=== PATIENT | female | born 1935 | race Caucasian/White ===

== ENCOUNTER 2016-12-11 16:11 | Inpatient (IN) | payer MEDICARE, OTHER ==
[~2016-12-11] VITALS: Ht 167.6 cm; Wt 51.3 kg
[~2016-12-11 16:11] MED LIST: Testosterone PO; [UNRECOGNIZED DRUG - CODE] PO; nature-throid; progesterone
[2016-12-11 16:38] VITALS: BP 138/70; PULSE 85; RESP 18; O2SAT 96
[2016-12-11 17:55] LABS: APPEARANCE,URINE TURBID (CLEAR,HAZY); COLOR,URINE YELLOW (YELLOW); PH,URINE 5.5 (5.0-8.0)
[2016-12-11 17:56] LABS: OCCULT BLOOD,URINE MODERATE (NEGATIVE)
[2016-12-11 18:00] VITALS: BP 118/77; PULSE 84; RESP 18; O2SAT 97
--- NOTE | 2016-12-11 18:07 | ED.REPORT ---
HPI-General Illness Date of Service Dec 11, 2016 ED Provider: Santosh Samuel DO An 81 year old female with a medical history including aphasia, dementia, and hypothyroidism presents to the ED via EMS accompanied by her family from [facility] with increased weakness onset yesterday. Associated symptoms include shivering, decreased mental status, and decreased mobility. Per EMS her systolic BP was 90 and her pulse was 90. She presents with her eyes closed and only minimally responsive. At baseline she responds to verbal stimuli and actively moves but does not walk and is disoriented x3. Nursing Notes Stated Complaint: WEAKNESS Chief Complaint: General Complaint Nursing Notes Reviewed: Yes Allergies: Coded Allergies: aspirin (Verified Allergy, Mild, rash, 04/16/13) Scheduled Acetaminophen (Acetaminophen) 325 Mg Capsule 650 MG PO QID and PRN Escitalopram Oxalate (Escitalopram Oxalate) 10 Mg Tablet 5 MG PO QAM Polyethylene Glycol 3350 (Polyethylene Glycol 3350) 17 Gm Powd.pack 17 GM PO QAM Quetiapine Fumarate (Quetiapine Fumarate) 25 Mg Tablet 25 MG PO DAILY Thyroid,Pork (Lefors Thyroid) 60 Mg Tablet 60 MG PO QAM Scheduled PRN ([Abh Gel]) 0.5/12.5/0.5/ML 1 ML TOP QID PRN PRN For Agitation Bisacodyl (Dulcolax Rectal) 10 Mg Supp.rect 10 MG RC DAILY PRN PRN For Constipation General Time Seen by MD: 18:06 Transferred From: snf Chief Complaint Weakness Hx Obtained From: Spouse, Daughter Unable to Obtain Hx: Patient condition, Mental status Arrived By: Ambulance Sudden in Onset?: No Onset Occurred: Yesterday Symptom Duration: Since onset Associated with: Denies: Fever Pertinent Negative: Relieved by nothing Recent Healthcare: No recent doctor visit Similar Sx Previous: No Past Medical History Past Medical History Aphasia Arthritis Dementia Hypothydroidism Disoriented x3 Past Surgical History None reported Smoking History Unknown if Ever Smoker Social History Other Social History: Good social support, Ambulatory Status Independent Review of Systems Unable to Obtain ROS Patient condition, Mental status Physical Exam Vital Signs Vital Signs Date Time Temp Pulse Resp B/P Pulse Ox O2 Delivery O2 Flow Rate FiO2 12/11/16 16:38 37.4 85 18 138/70 96 Room Air Initial VS: Reviewed Head / Eyes: Atraumatic, Normocephalic ENT: Conjunctiva normal, No scleral icterus Respiratory: Breath sounds normal, Clear to auscultation, No respiratory distress Cardiovascular: Regular rate & rhythm, Heart sounds normal Abdomen / GI: Soft, Non-tender General/Constitutional: No acute distress Alertness: Negative: Responds to verb stimuli Patient's eyes are closed but she pulls up her blanket when it is pulled down She is actively shaking with chills Skin: Warm, Dry Well-perfused Mental Status: Negative: Responds to verbal stim Patient's eyes are closed but she responds to her blanket being removed Interpretation & Diagnostics Interpretation & Diagnostics: Influenza Normal Lab Results Interpretation Result Diagram: 12/11/16 1643 12/11/16 1643 Test 12/11/16 16:43 12/11/16 17:22 12/11/16 17:36 12/11/16 19:31 White Blood Count 22.3th/mm3 (3.8-10.1) Red Blood Count 4.08mil/mm3 (3.90-5.20) Hemoglobin 12.8g/dL (12.0-15.6) Hematocrit 37.4% (35.0-46.0) Mean Corpuscular Volume 91.7fL (81-100) Mean Corpuscular Hemoglobin 31.4pg (27.0-35.0) Mean Corpuscular Hemoglobin Concent 34.2% (32.0-37.0) Red Cell Distribution Width 13.1% (12.3-15.4) Platelet Count 371bil/L (150-400) Neutrophils (%) (Auto) 87.7% (40-74) Lymphocytes (%) (Auto) 3.2% (14-46) Monocytes (%) (Auto) 8.4% (4-12) Eosinophils (%) (Auto) 0% (0-5) Basophils (%) (Auto) 0.1% (0-3) Hold Purple Top Tube Received (Received) Hold Blue Top Tube Received (Received) Sodium Level 134mEq/L (134-144) Potassium Level 4.3mEq/L (3.5-5.2) Chloride Level 95mEq/L (97-108) Carbon Dioxide Level 25mmol/L (18-29) Blood Urea Nitrogen 24mg/dL (8-27) Creatinine 0.96mg/dL (0.57-1.00) Estimat Glomerular Filtration Rate 80mL/min (>59) Glucose Level 129mg/dL (60-99) Calcium Level 9.5mg/dL (8.5-10.1) Total Bilirubin 0.5mg/dL (0.0-1.2) Aspartate Amino Transf (AST/SGOT) 21U/L (0-50) Alanine Aminotransferase (ALT/SGPT) 14U/L (0-32) Alkaline Phosphatase 149U/L (25-165) Total Protein 7.4g/dL (6.4-8.4) Albumin 3.0g/dL (3.4-5.0) Hold Red Top Tube Received (Received) Hold [place] Top Tube Received (Received) Hold Urine Received (Received) Urine Color Yellow (YELLOW) Urine Appearance Turbid (CLEAR,HAZY) Urine pH 5.5 (5.0-8.0) Urine Specific Dierks 1.030 (1.003-1.035) Urine Protein 30mg/dL (NEG,TRACE) Urine Glucose (UA) Negativemg/dL (NEGATIVE) Urine Ketones Negativemg/dL (NEGATIVE) Urine Occult Blood Moderate (NEGATIVE) Urine Nitrite Negative (NEGATIVE) Urine Bilirubin Negative (NEGATIVE) Urine Urobilinogen 1.0mg/dL (NORMAL) Urine Leukocyte Esterase Moderate (NEGATIVE) Urine RBC 3-10/hpf (0-2) Urine WBC 11-50/hpf (0-5) Urine Epithelial Cells None/hpf (NONE-MOD) Urine Crystals None seen (NONE SEEN) Urine Bacteria Many/hpf (NONE-FEW) Urine Hyaline Casts None/lpf (NONE) Urine Granular Casts None seen (NONE SEEN) Urine Waxy Casts None seen (NONE SEEN) Urine Red Blood Cell Casts None seen (NONE SEEN) Urine White Blood Cell Casts None seen (NONE SEEN) Urine Mucus Present (None Seen) Urine Trichomonas None seen (NONE SEEN) Urine Yeast None (NONE SEEN) Urinalysis Comment None Urine Culture Reflexed Indicated Lactic Acid Level 1.3mmol/L (0.4-2.0) X-Ray Chest Interpretation Chest Xray Interpretation: IMPRESSION: Increased opacification the right lung base suspicious for early pneumonia. Dictated by: Amirah Cid MD, PhD on 12/11/2016 at 20:23 View: Portable, 1 view Re-Eval/Medical Decision Med Decision/Clinical Course Patient presents with global weakness and shaking chills. She is fine if signs of sepsis. The most likely source is urinary tract infection. She was fluid resuscitated with normal saline and treated with broad-spectrum antibiotics. Plan for hospital admission. Time of Eval: 19:48 Patient Status: Condition improved Re-Evaluation/Progress Note: Discussed with patient's family lab results, diagnosis, and plan for admit. Patient's family agrees with plan for care and all questions were addressed. Consultation : Referral / Consult Name: Owen Mccoy MD Consulted With: Hospitalist Call Returned at: 19:56 Product Planner: Agrees with eval, Agrees with plan, Accepts admit Counseled Regarding: Diagnosis, Lab results, Need for admission Discharge & Departure Primary Impression: Sepsis Sepsis type: sepsis due to unspecified organism Qualified Code: A41.9 - Sepsis, unspecified organism Additional Impression: UTI (urinary tract infection) Urinary tract infection type: acute cystitis Hematuria presence: without hematuria Qualified Code: N30.00 - Acute cystitis without hematuria Disposition: ADMITTED TO HOSPITAL Discharge Condition All VS Reviewed: Yes Condition: Stable Referrals: Rachel Jessica MD (PCP) José Luis Attestation Portions of this note were transcribed by Chana Daniels. I, Dr. Samuel, personally performed the history, physical exam, and medical decision-making; I reviewed and confirmed the accuracy of the information in the transcribed note. Signed by: José Luis New, 12/11/2016, 21:14 copies to: Rachel Jessica MD, Todd P DO Dec 11, 2016 18:07 CHANA DANIELS Dec 11, 2016 18:59
[2016-12-11] MEDS ORDERED: Piperacillin-Tazo 3.375 Gm Inj 3.375 GM in Dextrose 5% Minibag Plus 50 ML IV ONE (18:50)
[2016-12-11] MEDS ORDERED: 0.9% Sodium Chloride 1,000 ML IV ONE ×2 (18:50→19:55)
[2016-12-11] MEDS ORDERED: Piperacillin-Tazo 3.375 Gm Inj 3.375 GM in Dextrose 5% Minibag Plus 50 ML IV SCH (18:50)
[2016-12-11 18:55] LABS: BASOPHILS % (AUTO) 0.1 % (0-3); EOSINOPHILS % (AUTO) 0 % (0-5); MONOCYTES % (AUTO) 8.4 % (4-12); Mean Corpuscular Hemoglobin 31.4 pg (27.0-35.0); Mean Corpuscular Volume 91.7 fL (81-100); NEUTROPHILS % (AUTO) 87.7 % (40-74); Platelet Count 371 bil/L (150-400)
[2016-12-11 20:00] VITALS: BP 114/40; PULSE 93; RESP 18; O2SAT 97
[2016-12-11] MEDS ORDERED: Alum-Mag Hydrox-Simeth 30 mL Suspension PO PRN (20:25)
[2016-12-11] MEDS ORDERED: Polyethylene Glycol (PEG) 17 Gm Powder PO PRN (20:25)
[2016-12-11] MEDS ORDERED: Ondansetron 2 mg/mL 2 mL Inj IVPUSH PRN (20:25)
--- NOTE | 2016-12-11 20:25 | DRSVH ---
PROCEDURE: X-RAY CHEST ONE VIEW, PORTABLE ([id number]) INDICATIONS: sepsis TECHNIQUE: One view of the chest was acquired. COMPARISON: None. FINDINGS: Surgical changes and devices: None. Lungs and pleura: No pleural effusions or pneumothorax. Subtle increased opacification noted in the right lung base suspicious for pneumonia. Mediastinum: Mediastinal contours appear normal. Heart size is normal. Bones and chest wall: No suspicious bony lesions. Overlying soft tissues appear unremarkable. IMPRESSION: Increased opacification the right lung base suspicious for early pneumonia. Dictated by: Amirah Cid MD, PhD on 12/11/2016 at 20:23 Approved by: Amirah Cid MD, PhD on 12/11/2016 at 20:24
[2016-12-11] MEDS ORDERED: ESCI10TA52 PO (21:03)
[2016-12-11] MEDS ORDERED: ABH GEL TOP (21:03)
[2016-12-11] MEDS ORDERED: ACET325C PO (21:03)
[2016-12-11] MEDS ORDERED: QUET25TA73 PO (21:03)
[2016-12-11] MEDS ORDERED: BISA10SU61 RC (21:03)
[2016-12-11] MEDS ORDERED: THYR60TA2 PO (21:03)
[2016-12-11] MEDS ORDERED: POLY17PO2 PO (21:03)
--- NOTE | 2016-12-11 21:07 | PCM.HPMED ---
Subjective Date of Service Dec 11, 2016 Primary Provider: Admitting Physician: Primary Care Physician: Rachel Jessica MD Attending Physician: Chief Complaint: Fatigue, decreased appetite, abnormal labs History of Present Illness: Patient is an 81 year old female with a history of Alzheimer's disease. She presents to [facility] from [facility] on 12/11/16. She has a 3 day history of fatigue, decreased appetite/thirst, low grade fever, and chills/rigors. Staff decided to do a blood test which was found to be abnormal and she was sent to the ED. Results of that blood test could not be located at the time of this H& P. Patient cannot communicate nor is she mobile anymore. History is obtained from her and daughter. The reports a decline in the patient's mental status over the last six months with a more remarkable decline in the last two. In the ED the patient is afebrile with a heart rate of 85, respiratory rate of 18, blood pressure 138/70 and O2 saturation of 96% on room air. Labs we remarkable for WBC 22.3. UA was done and showed 11-50 WBC with many bacteria. It was reflexed to culture. IV antibiotics started as well as IV fluids. Patient to be admitted for further management. Review of Systems: Unable to obtain an accurate ROS as patient has advanced dementia and cannot communicate. Allergies Coded Allergies: aspirin (Verified Allergy, Mild, rash, 04/16/13) Home Medications No MAR located at time of this H&P. Patient's reports that she takes Seroquel daily. No other known daily medications. PMH Alzheimer's disease (diagnosed about 5 years ago) Varicose veins No history of DM, HTN, CAD, stroke Surgical History Cholecystectomy Hysterectomy Family History No known family history of heart disease, kidney failure or any other problems Social History Hx Alcohol Use: No Hx Substance Use: No Hx Tobacco Use: Yes Smoking Status: Former Smoker (3 years of light smoking in her 20s) Living Arrangement: [facility] ([facility]) Exam Vital Signs Vital Sign - Last Date Time Temp Pulse Resp B/P Pulse Ox O2 Delivery O2 Flow Rate FiO2 12/11/16 16:38 37.4 85 18 138/70 96 Room Air Exam Patient somnolent with no response to verbal or tactile stimulus, no acute distress; follows no directions Head atraumatic, normocephalic Significant amount of yellow eye mattering making it difficult to fully open the eye and evaluate Mucus membranes dry, no oral thrush observed but difficult to open mouth for complete evaluation No cervical lymphadenopathy, neck supple, nontender No JVD noted Cardiac tones regular rate and rhythm with no murmur appreciated Lungs clear to auscultation bilaterally in the anterior becker with adequate respiratory effort No abdominal tenderness, non-distended, normoactive bowel tones, soft Payne absent Radial pulses normal and equivalent bilaterally, dorsalis pedis pulses difficult to appreciate bilaterally No cyanosis, clubbing or edema No ulcerations/open wounds No neuro exam could be performed as patient was noncommunicative and followed no directions Lab and Diagnostics Result Diagram: 12/11/16 1643 12/11/16 1643 Assessment & Plan Patient is an 81 year old female with a history of Alzheimer's disease. She presents to [facility] from [facility] on 12/11/16. She has a 3 day history of fatigue, decreased appetite/thirst, low grade fever, and chills/rigors. Lab work was done and showed abnormalities but no report found. Patient appears to have UTI and will be admitted for management of that infection. 1. Urinary tract infection, acute, present on admission. - Await culture and sensitivities. - Zosyn started in ED. Will continue ABX but switch to ceftriaxone. - IV NS started at 75 ml/hr. - When patient more awake will assess ability for PO intake - reportedly does eat and drink with some assistance. 2. Leukocytosis, acute, present on admission. - Patient does not meet sepsis criteria at time of admission. - Treat underlying UTI. - Continue to monitor CBC. 3. Encephalopathy, acute, present on admission. - Likely secondary to UTI. - Treat underlying UTI. - Continue to monitor closely for resolution. 4. Alzheimer's disease, chronic, ongoing. - Notable recent decline. Patient non-communicative, non-mobile. Typically able to eat and drink with some help. - Seroquel (unknown dose) given daily. Will make 25 mg available HS PRN until dosing confirmed. 5. Medication reconciliation: - Patient's one known medication is Seroquel. Need to verify dosing and that it is the only daily med. - Will ask nursing unit coordinator to call [facility] for MAR. 6. Code status/POLST: - Patient's family reports existence of a POLST. Would like use to follow this closely. It was not sent over with patient. - Shantell Samsriki called by family and ED fax number given. Please place POLST on the patient's chart when it arrives. - Known DNR/DNI. Uncertain about other kinds of interventions. Will plan to medically manage patient's infection at this time with IV fluids, antibiotics and DVT prophylaxis. - Antacid available PRN. - Bowel regimen available PRN. - Tylenol available PRN mild pain, fever greater than 38.5. - Antiemetic available PRN. Patient admitted under inpatient status with expected length of stay greater than 2 midnights for severity of present symptoms, complexities of treatment plan and risk for adverse events. PCP Rachel Jessica MD GI Prophylaxis: Not indicated VTE Prophylaxis: Sub-Q Enoxaparin, SCDs Resuscitation Status: DNR/DNI:Do Not Resuscitate/Intubate Attending Statement The patient was seen and examined together with Dr. Merrill on and 12/11 agree with the history, exam and plan as outlined in the note above. Tracey Merrill DO Dec 11, 2016 20:55 Owen Mccoy MD Dec 17, 2016 19:02
[2016-12-11 22:19] VITALS: BP 97/55; PULSE 88; RESP 18; O2SAT 94
[2016-12-11] MEDS ORDERED: Acetaminophen IV 1,000 MG in IV Premix 1 EACH IV PRN (22:30)
[2016-12-11] MEDS: 0.9% Sodium Chloride 1,000 ML IV SCH (22:39)
[2016-12-11] MEDS: cefTRIAXone Inj 2,000 MG in Dextrose 5% Minibag Plus 50 ML IV SCH (22:40)
[2016-12-11] MEDS: Acetaminophen IV 1,000 MG in IV Premix 1 EACH IV PRN (23:20)
[2016-12-12] VITALS (8 sets, daily range): BP systolic 107–144; BP diastolic 57–67; PULSE 51–81; RESP 18–20; O2SAT 93–97
--- NOTE | 2016-12-12 00:50 | NUR ---
admit note Pt is admitted to room 3003 from ED around 22:00 for Sepsis/UTI; accompanied by her and daughter. Pt is alert, restless, unable to follow commands or unable to hold attention due to alzheimer's disease. able to recognize and daughter; and able to answer simple questions from them. bedrest but able to push her upper body up and swings her legs slowly up on the side rail. Incontinent of urine. stayed with pt; oriented to room and plan of care; he verbalized understanding.
[2016-12-12] MEDS: Acetaminophen IV 1,000 MG in IV Premix 1 EACH IV PRN (05:29)
--- NOTE | 2016-12-12 07:31 | PCM.PNMED ---
Subjective Date of Service Dec 12, 2016 Subjective No overnight event. Today, family reported improvement in mentation. Per son, family has noted steady decline in memory 3yrs ago. Noticeable memory deficit 1 yr ago. And steep decline 4mo ago, hence [facility] for the last month. At baseline, patient "lost the will to walk", prefers the wheelchair. PO intake has decline within the past month. Patient continues to recognize family and alert in self only. She has severe sun downing reported by daughter. Exam Vital Signs Vital Sign - Last Date Time Temp Pulse Resp B/P Pulse Ox O2 Delivery O2 Flow Rate FiO2 12/12/16 07:23 81 12/12/16 06:30 36.8 18 107/60 96 Room Air Intake and Output 12/11/16 12/11/16 12/12/16 Cumulative From/Thru 15:00 23:00 07:00 12/11/16 16:38 - 12/12/16 06:48 Intake Total 2000 ml 694 ml 2694 ml Balance 2000 ml 694 ml 2694 ml Intake Oral 0 ml 0 ml IV Total 2000 ml 694 ml 2694 ml # Voids 2 2 Exam Gen: Lying comfortably at 30degree head tilt HEENT: PERRLA, Anicteric sclerae, moist conjunctivae, and no lid lag. Neck: supple, no JVD Cardio: Regular rate and rhythm with no murmurs, rubs, or gallops appreciated Pulm: b/l air sound, no crackles, wheezes, or rhonchi. Normal respiratory effort with no use of accessory muscles. Abd: positive bowel tone. Soft, nontender, nondistended. Extremities: No clubbing, cyanosis, edema, or lymphadenopathy appreciated. Skin: Normal temperature, turgor, and texture; no rash, ulcers, or subcutaneous nodules appreciated. Neuro: Cranial nerves grossly intact. moving equally on all four limbs. Psyc: aox1, confused. Lab and Diagnostics Result Diagram: 12/11/16 1643 12/11/16 1643 Assessment & Plan Patient is an 81 year old female with a history of Alzheimer's disease. She presents to [facility] from [facility] on 12/11/16. She has a 3 day history of fatigue, decreased appetite/thirst, low grade fever, and chills/rigors. Lab work was done and showed abnormalities but no report found. Patient appears to have UTI and will be admitted for management of that infection. Urinary tract infection, acute, present on admission. improving - Await culture and sensitivities. - Zosyn started in ED. Will continue ABX but switch to ceftriaxone. - continue IV NS at 75 ml/hr as patient with "0" oral intake today. - Speech therapy recommended nectar thick liquid, 1:1 supervised feed Leukocytosis, acute, present on admission. - Patient does not meet sepsis criteria at time of admission. - Urine with WBC and Crx suggestive of early pneumonia - Likely UTI, some possibility of pneumonia. - cont ceftriaxone. - Continue to monitor CBC. Encephalopathy, present on admission. improving - Likely secondary to UTI. - Treat underlying UTI. - ABH gel PRN - Continue to monitor closely for resolution. Alzheimer's disease, chronic, ongoing. - Notable recent decline. Patient non-communicative, non-mobile. Typically able to eat and drink with some help. - Seroquel 25mg nightly Code status/POLST: - DNR/DNI comfort care, determine limited abx use, no tube feed - Antacid available PRN. - Bowel regimen available PRN. - Tylenol available PRN mild pain, fever greater than 38.5. - Antiemetic available PRN. Patient admitted under inpatient status with expected length of stay greater than 2 midnights for severity of present symptoms, complexities of treatment plan and risk for adverse events. PCP Rachel Jessica MD GI Prophylaxis: Not indicated VTE Prophylaxis: Sub-Q Enoxaparin, SCDs Resuscitation Status: DNR/DNI:Do Not Resuscitate/Intubate Time spent 25 minutes Attending Statement I have seen and evaluated patient at bedside in addition to directly supervising care provided by resident physician. I agree with above documentation. Tej Barkley DO Dec 12, 2016 07:30 Dwight Sprague DO Dec 13, 2016 08:13
[2016-12-12] MEDS: cefTRIAXone Inj 2,000 MG in Dextrose 5% Minibag Plus 50 ML IV SCH (07:51)
[2016-12-12 08:45] LABS: BASOPHILS % (AUTO) 0.1 % (0-3); EOSINOPHILS % (AUTO) 0.1 % (0-5); MONOCYTES % (AUTO) 8.2 % (4-12); Mean Corpuscular Volume 92.2 fL (81-100); NEUTROPHILS % (AUTO) 88.3 % (40-74); Platelet Count 338 bil/L (150-400)
[2016-12-12] MEDS: 0.9% Sodium Chloride 1,000 ML IV SCH ×2 (09:44→14:45)
--- NOTE | 2016-12-12 10:36 | NUR ---
Activity Pt sleeping off and on. Between short naps, pt grabbing at linens/gown, pulling, attempting to swing legs over side of bed. Eyes remain mostly closed. Resisted brief change but no aggression noted. Family in and out of room this am, visiting. Bed netting opened while family in room to improve communication. Pt occasionally speaking one small sentence or a word that is not congruent with situation. Appears comfortable. IV remains intact.
--- NOTE | 2016-12-12 14:03 | NUR ---
Evaluation completed. Please go to "Notes" then click on "Assessments and Notes" (bottom left corner of screen). Then select appropriate discipline tab on top of screen.
--- NOTE | 2016-12-12 15:06 | NUR ---
NUTRITION ASSESSMENT: ASSESS: 81 YO female admitted for fatigue, decreased appetite/thirst x 3 days prior to admit and UTI. Pt is non-communicative and non-mobile at baseline. Per notes, pt has been declining over the past couple of months. PMHx: Alzheimer's disease. LABS: Reviewed. Alb 3.0, PAB 6.0 MEDS: Reviewed. GI: No BM reported at this time. CURRENT WT:51.3 kg. DIET: Stimulation, [place] thick liquids by tsp. EST. NEEDS: 5936-5454 kcals (30-35 kcals/kg BW), 60-75 g protein (1.2-1.5 g/kg BW) NUTRITION DIAGNOSIS: 1.) Inadequate oral intake related to decreased ability to consume sufficient energy as evidenced by current stimulation diet status. 2.) Chewing / Swallowing difficulties related to delayed swallow as evidenced by current need for mechanically altered diet texture, ST following. NUTRITION INTERVENTION: 1.) Continue magic cups while pt is on stimulation diet. 2.) Continue to advance diet as able per ST recommendations. MONITOR / EVAL: Diet advancement / tolerance, po intake, labs, nutritional status, POC. Follow per high nutritional risk guidelines.
--- NOTE | 2016-12-12 16:12 | NUR ---
Social Work: Discharge planning Senior Planning Analyst spoke with Grabiel, who identified herself as the patient's nurse, at [facility] Address: [address] [place] [address] to inquire about what was needed for the patient to return to the facility. Grabiel stated that she was not sure what was needed for the patient to return, but she would have the Pediatric Associate Selen to call and notify the SW of what was needed. SW provided Grabiel with the telephone number to the SW float phone and the telephone number to the unit SW. SW will continue to follow. Candace Burden, KATHARINA, ACM
--- NOTE | 2016-12-12 16:24 | NUR ---
Social WorK: Initial Assessment Data & Assessment: EMR Reviewed. See Initial Assessment. SW met with patient, patient's (Salvador Capps [phone]), patient's daughter Anita and patient's son Michael at bedside to complete initial assessment, discuss discharge planning and SW role reviewed. patient admitted due to sepsis and UTI. Patient's insurance is medicare and [facility] [employer] insurace Supp. as secondary. Patient's PCP is Dr. Rachel Jessica. Patient does not have VA or LTC benefits. Prior to admission patient lived at [facility] and she was WC bound. Patient also has a walker. Patient does not have any HH or SNF history. Patient has had in-home caregivers in the past. patient has a PT evaluation pending. SW will follow patient for PT recommendations and other discharge needs. Patient's family anticipates that patient will return to [facility] via [facility] transport van, but they are aware of other transportation options if the transportation van is not available. Plan: Patient's family plans for patient to return to [facility]. SW will continue to follow for PT recommendations. Alejandro Alejandro LMSW, KAREN Addendum: 12/12/16 at 1637 by ALEJANDRO ALEJANDRO Amended: Links added.
--- NOTE | 2016-12-12 16:53 | NUR ---
Activity Pt out of soma bed and up to chair w/ assist from PT. Pt able to eat puddings and applesauce while sitting up, taking small bites. Pt initially very hungry but became full quickly. Family in room for support. Addendum: 12/12/16 at 1920 by JESSICA BELLA RN Pt sat up in chair for approx 1 hour, then back to bed. Pt back in netted bed at request of family for pt safety. New restraint order obtained.
[2016-12-12] MEDS ORDERED: THYROID PORK 60 MG PO SCH (18:15)
[2016-12-13 00:58] VITALS: BP 118/62; PULSE 68; RESP 20; O2SAT 96
--- NOTE | 2016-12-13 04:01 | NUR ---
Uneventful Night: Pt rested through the night with no s/sx of pain or discomfort. Turned frequently. at bedside. Cooperative with care.
[2016-12-13] MEDS: 0.9% Sodium Chloride 1,000 ML IV SCH (04:30)
[2016-12-13 04:39] VITALS: BP 126/80; PULSE 82; RESP 18; O2SAT 94
[2016-12-13 05:00] VITALS: PULSE 70
[2016-12-13 06:20] LABS: Mean Corpuscular Hemoglobin 30.5 pg (27.0-35.0); Mean Corpuscular Volume 92.2 fL (81-100)
[2016-12-13 08:00] VITALS: PULSE 64
[2016-12-13] MEDS: cefTRIAXone Inj 2,000 MG in Dextrose 5% Minibag Plus 50 ML IV SCH (08:32)
[2016-12-13 08:58] VITALS: BP 127/68; PULSE 65; RESP 18; O2SAT 96
--- NOTE | 2016-12-13 09:00 | NUR ---
VASQUEZ signed Pt's spouse signed VASQUEZ. BARTOLO Sinha
--- NOTE | 2016-12-13 09:46 | NUR ---
VASQUEZ: Patient in mitali bed not able to receive VASQUEZ. Asked SETUP OPERATOR to follow up with family.
[2016-12-13] MEDS ORDERED: SULF1TAB7 PO (11:11)
--- NOTE | 2016-12-13 11:15 | PCM.DIMED ---
Tej Barkley DO 12/13/16 1115: Discharge Instructions Date of Service Dec 13, 2016 Dates of Hospitalization Dec 11, 2016 at 20:37 Discharge Diagnosis Discharge Diagnosis Urinary tract infection, acute, present on admission. improving Leukocytosis, acute, present on admission.Resolved Encephalopathy, present on admission. improving Alzheimer's disease, chronic, ongoing. Diet No restrictions Activity Home Health Phyical Therapy Call your provider Fever or Chills, Shortness of breath, Vomitting, Excessive diarrhea Patient Instructions For your visit, you were admitted for an uncomplicated Urinary tract infection. This likely caused your altered mentation. You have responded well to antibiotics. We will continue your antibiotics for another 4 days. Please take Keflex 1tab, twice daily for 4 days, starting tomorrow On this admission, we note you have difficulty with swallowing. Please follow diet as outlined by speech therapy Follow-up Provider: Rachel Jessica MD Follow-up with PCP in: 1 week Dwight Sprague DO 12/13/16 1510: Discharge Instructions Attending's Statement Read and agree Tej Barkley DO Dec 13, 2016 11:15 Dwight Sprague DO Dec 13, 2016 15:10
[2016-12-13] MEDS ORDERED: CEPH-512 PO (12:12)
[2016-12-13 13:32] VITALS: BP 126/68; PULSE 68; RESP 18; O2SAT 94
--- NOTE | 2016-12-13 14:22 | NUR ---
Social Work: Discharge Data: Pt is on day 2 of hospitalization. EMR reviewed. Pt's d/c orders are in. Princess from came and assessed pt for going back today, she states they can take pt back. PORTABLE POWER TOOL REPAIRER confirmed with ST that they do not need to see her before d/c, notified MD. PORTABLE POWER TOOL REPAIRER met with pt's family and discussed HH with them, HH choice list given. They state they would like [facility]. PORTABLE POWER TOOL REPAIRER referred pt to [facility] for RN/PT/ST, left a message with Nico, access given, F2F ready for them to vegetable picker. PORTABLE POWER TOOL REPAIRER will fax over prescription list to [facility] once finalized. PORTABLE POWER TOOL REPAIRER will continue to follow if needs arise. Assessment: Pt from memory care facility. Plan: Pt will d/c back to [facility] today via cabulance being set up by family for 4:00pm. PORTABLE POWER TOOL REPAIRER will fax over prescription list to [facility] once finalized. PORTABLE POWER TOOL REPAIRER will continue to follow if needs arise. BARTOLO Sinha
--- NOTE | 2016-12-13 16:14 | NUR ---
Discharge Report called to VIN Monroy at [facility]. Discharge paperwork, care notes, prescriptions reviewed with family - signature obtained. VSS, no s/sx of distress, IV DC'd intact, all belongings with pt. Pt escorted out of facility by [facility] via WC. Being taken to [facility].
--- NOTE | 2016-12-13 18:00 | PCM.DC.MED ---
Discharge Summary Date of Service Dec 13, 2016 Dates of Hospitalization Date of Hospital Admission Dec 11, 2016 at 20:37 Date of Discharge: Dec 13, 2016 Providers: Admitting Physician: Owen Mccoy MD Primary Care Physician: Rachel Jessica MD Attending Physician: Owen Mccoy MD Diagnosis at Time of Discharge Diagnosis at Time of Discharge Urinary tract infection, acute, present on admission. improving Leukocytosis, acute, present on admission.Resolved Encephalopathy, present on admission. improving Alzheimer's disease, chronic, ongoing. Brief History Patient is an 81 year old female with a history of Alzheimer's disease. She presents to [facility] from [facility] on 12/11/16. She has a 3 day history of fatigue, decreased appetite/thirst, low grade fever, and chills/rigors. Staff decided to do a blood test which was found to be abnormal and she was sent to the ED. Results of that blood test could not be located at the time of this H& P. Patient cannot communicate nor is she mobile anymore. History is obtained from her and daughter. The reports a decline in the patient's mental status over the last six months with a more remarkable decline in the last two. In the ED the patient is afebrile with a heart rate of 85, respiratory rate of 18, blood pressure 138/70 and O2 saturation of 96% on room air. Labs we remarkable for WBC 22.3. UA was done and showed 11-50 WBC with many bacteria. It was reflexed to culture. IV antibiotics started as well as IV fluids. Patient to be admitted for further management. Hospital Course Patient is an 81yof with MHx significant for Alzheimer's disease presented from [facility] on 12/11/16 with 3 day history of fatigue, decreased appetite/ thirst, low grade fever, and chills/rigors. Admitted for UTI and dehydration. Mentation improved with fluids and antibiotics. At baseline though, her FAST score is 7E, severely demented. Speech therapy eval and recommended stimulation , nectar thicken diet with 1:1 supervised feed. POLST form is DNR/DNI, limited antibiotic use, and NO tube feeding. Uncomplicated Urinary tract infection, acute, present on admission. improving - Zosyn started in ED. switch to ceftriaxone - Transition to Keflex 500mg BID for 4 days to complete a 7days course Poor oral intake, present on admission, ongoing - This is likely represents worsening of dementia. - Continue IV NS at 75 ml/hr as patient with "0" oral intake first 2 days. - Oral intake improve with resolution of UTI. - NO TUBE FEED PER POLST Leukocytosis, acute, present on admission, resolved - Patient does not meet sepsis criteria at time of admission. - Urine with WBC and Crx suggestive of early pneumonia - Likely UTI, some possibility of pneumonia. - Received ceftriaxone for 3 days which covered for both. Encephalopathy, present on admission. improving - Likely secondary to UTI. - Treat underlying UTI. - ABH gel PRN Alzheimer's disease, chronic, ongoing. - Notable recent decline. Patient non-communicative, non-mobile. Typically able to eat and drink with some help. - Seroquel 25mg nightly to continue outpatient Code status/POLST: - DNR/DNI comfort care, determine limited abx use, no tube feed Exam Vital Signs (Last) Date Time Temp Pulse Resp B/P Pulse Ox O2 Delivery O2 Flow Rate FiO2 12/13/16 13:32 36.4 68 18 126/68 94 Room Air Exam Gen: Lying comfortably at 30degree head tilt HEENT: PERRLA, Anicteric sclerae, moist conjunctivae, and no lid lag. Neck: supple, no JVD Cardio: Regular rate and rhythm with no murmurs, rubs, or gallops appreciated Pulm: b/l air sound, no crackles, wheezes, or rhonchi. Normal respiratory effort with no use of accessory muscles. Abd: positive bowel tone. Soft, nontender, nondistended. no suprapubic tenderness Extremities: No clubbing, cyanosis, edema, or lymphadenopathy appreciated. Skin: Normal temperature, turgor, and texture; no rash, ulcers, or subcutaneous nodules appreciated. Neuro: Cranial nerves grossly intact. moving equally on all four limbs. Psyc: aox1, confused. Test 12/11/16 16:43 12/11/16 17:22 12/11/16 17:36 12/11/16 19:31 Hold Purple Top Tube Received (Received) Hold Blue Top Tube Received (Received) Total Bilirubin 0.5mg/dL (0.0-1.2) Aspartate Amino Transf (AST/SGOT) 21U/L (0-50) Alanine Aminotransferase (ALT/SGPT) 14U/L (0-32) Alkaline Phosphatase 149U/L (25-165) Total Protein 7.4g/dL (6.4-8.4) Albumin 3.0g/dL (3.4-5.0) Hold Red Top Tube Received (Received) Hold [place] Top Tube Received (Received) Hold Urine Received (Received) Urine Color Yellow (YELLOW) Urine Appearance Turbid (CLEAR,HAZY) Urine pH 5.5 (5.0-8.0) Urine Specific [place] 1.030 (1.003-1.035) Urine Protein 30mg/dL (NEG,TRACE) Urine Glucose (UA) Negativemg/dL (NEGATIVE) Urine Ketones Negativemg/dL (NEGATIVE) Urine Occult Blood Moderate (NEGATIVE) Urine Nitrite Negative (NEGATIVE) Urine Bilirubin Negative (NEGATIVE) Urine Urobilinogen 1.0mg/dL (NORMAL) Urine Leukocyte Esterase Moderate (NEGATIVE) Urine RBC 3-10/hpf (0-2) Urine WBC 11-50/hpf (0-5) Urine Epithelial Cells None/hpf (NONE-MOD) Urine Crystals None seen (NONE SEEN) Urine Bacteria Many/hpf (NONE-FEW) Urine Hyaline Casts None/lpf (NONE) Urine Granular Casts None seen (NONE SEEN) Urine Waxy Casts None seen (NONE SEEN) Urine Red Blood Cell Casts None seen (NONE SEEN) Urine White Blood Cell Casts None seen (NONE SEEN) Urine Mucus Present (None Seen) Urine Trichomonas None seen (NONE SEEN) Urine Yeast None (NONE SEEN) Urinalysis Comment None Urine Culture Reflexed Indicated Lactic Acid Level 1.3mmol/L (0.4-2.0) Test 12/12/16 08:00 12/13/16 05:20 Neutrophils (%) (Auto) 88.3% (40-74) Lymphocytes (%) (Auto) 2.9% (14-46) Monocytes (%) (Auto) 8.2% (4-12) Eosinophils (%) (Auto) 0.1% (0-5) Basophils (%) (Auto) 0.1% (0-3) Prealbumin 6mg/dL (20-40) Procalcitonin 0.34ng/mL (0.00-0.08) White Blood Count 10.0th/mm3 (3.8-10.1) Red Blood Count 3.44mil/mm3 (3.90-5.20) Hemoglobin 10.5g/dL (12.0-15.6) Hematocrit 31.7% (35.0-46.0) Mean Corpuscular Volume 92.2fL (81-100) Mean Corpuscular Hemoglobin 30.5pg (27.0-35.0) Mean Corpuscular Hemoglobin Concent 33.1% (32.0-37.0) Red Cell Distribution Width 13.2% (12.3-15.4) Platelet Count 368bil/L (150-400) Sodium Level 143mEq/L (134-144) Potassium Level 3.6mEq/L (3.5-5.2) Chloride Level 106mEq/L (97-108) Carbon Dioxide Level 23mmol/L (18-29) Blood Urea Nitrogen 20mg/dL (8-27) Creatinine 0.54mg/dL (0.57-1.00) Estimat Glomerular Filtration Rate 155mL/min (>59) Glucose Level 94mg/dL (60-99) Calcium Level 8.2mg/dL (8.5-10.1) Discharge Medications Discharge Medications Acetaminophen (Acetaminophen) 325 Mg Capsule 650 MG PO QID (Reported) and PRN Cephalexin (Keflex) 500 Mg Capsule 500 MG PO BID Prescribed by: BAKARI BARKLEY DO Escitalopram Oxalate (Escitalopram Oxalate) 10 Mg Tablet 5 MG PO QAM (Reported) Polyethylene Glycol 3350 (Polyethylene Glycol 3350) 17 Gm Powd.pack 17 GM PO QAM (Reported) Quetiapine Fumarate (Quetiapine Fumarate) 25 Mg Tablet 25 MG PO DAILY (Reported ) Thyroid,Pork ([place] Thyroid) 60 Mg Tablet 60 MG PO QAM (Reported) As needed ([Abh Gel]) 0.5/12.5/0.5/ML 1 ML TOP QID PRN PRN For Agitation (Reported) Bisacodyl (Dulcolax Rectal) 10 Mg Supp.rect 10 MG RC DAILY PRN PRN For Constipation (Reported) Followup Plan Discharge Diet: No restrictions Discharge Activity: Home Health Phyical Therapy Patient Instructions For your visit, you were admitted for an uncomplicated Urinary tract infection. This likely caused your altered mentation. You have responded well to antibiotics. We will continue your antibiotics for another 4 days. Please take Keflex 1tab, twice daily for 4 days, starting tomorrow On this admission, we note you have difficulty with swallowing. Please follow diet as outlined by speech therapy Follow-up Provider: Rachel Jessica MD Follow-up with PCP in: 1 week Time spent 40 minutes Attending Statement I have seen and evaluated patient at bedside, in addition to directly supervising care provided by resident physician. I agree with above documentation. copies to: Rachel Jessica MD Barkley,Bakari H DO Dec 13, 2016 18:00 Dwight Sprague DO Dec 13, 2016 18:45
== END 2016-12-13 16:11 | DRG 689 ==
LOC: EDBD 16:11 → SED 16:11 → MPC 20:37
PROVIDERS: ADMIT Hospitalist; ATTEND Hospitalist
DX: N39.0 Urinary tract infection, site not specified (principal); G93.40 Encephalopathy, unspecified; J18.9 Pneumonia, unspecified organism; G30.9 Alzheimer's disease, unspecified; F02.80 Dementia in other diseases classified elsewhere, unspecified severity, without behavioral disturbance, psychotic disturbance, mood disturbance, and anxiety; E03.9 Hypothyroidism, unspecified; Z66 Do not resuscitate

== ENCOUNTER 2017-03-06 16:02 | Emergency (ER) | payer MEDICARE, OTHER ==
[~2017-03-06 16:02] MED LIST changes: +ABH GEL TOP; +ACET325C PO; +BISA10SU61 RC; +CEPH-512 PO; +ESCI10TA52 PO; +POLY17PO2 PO; +QUET25TA73 PO; +THYR60TA2 PO; -Testosterone PO; -[UNRECOGNIZED DRUG - CODE] PO; -nature-throid; -progesterone
[2017-03-06 16:20] VITALS: BP 136/72; PULSE 65; RESP 14; O2SAT 100
--- NOTE | 2017-03-06 16:22 | ED.REPORT ---
HPI-Extremity Problem Upper Date of Service Mar 06, 2017 ED Provider: Teo Keenan MD Patient is an 81 year old female with a history of sepsis and falls who presents to the ED via EMS complaining of left shoulder pain and bruising. Per the patient's , the patient's son noticed it today around 1430 but no one at the [facility] saw her fall. Associated symptoms include left facial swelling and bruising on the left clavicle. Nursing Notes Stated Complaint: L/SHOULDER PAIN Chief Complaint: Extremity Trauma Nursing Notes Reviewed: Yes Allergies: Coded Allergies: aspirin (Verified Allergy, Mild, rash, 04/16/13) Scheduled Acetaminophen (Acetaminophen) 325 Mg Capsule 650 MG PO QID and PRN Cephalexin (Keflex) 500 Mg Capsule 500 MG PO BID Escitalopram Oxalate (Escitalopram Oxalate) 10 Mg Tablet 5 MG PO QAM Polyethylene Glycol 3350 (Polyethylene Glycol 3350) 17 Gm Powd.pack 17 GM PO QAM Quetiapine Fumarate (Quetiapine Fumarate) 25 Mg Tablet 25 MG PO DAILY Thyroid,Pork ([place] Thyroid) 60 Mg Tablet 60 MG PO QAM Scheduled PRN ([Abh Gel]) 0.5/12.5/0.5/ML 1 ML TOP QID PRN PRN For Agitation Bisacodyl (Dulcolax Rectal) 10 Mg Supp.rect 10 MG RC DAILY PRN PRN For Constipation Hydrocodone-Acetaminophen 5-325 mg (Hydrocodone-Acetaminophen 5-325 mg) 1 Each Tablet 1 TABLET PO Q4H PRN PRN For Pain General Time Seen by MD: 16:19 Chief Complaint Shoulder injury left Hx Obtained From: Patient, Spouse Arrived By: Walk-in Onset Occurred: Onset unknown Location: : Shoulder left Recent Healthcare: Recent doctor visit, Recent hospitalization Similar Sx Previous: No Past Medical History Past Medical History sepsis Past Surgical History none reported Smoking History Unknown if Ever Smoker Social History Other Social History: Good social support, , Lives in [facility] Ambulatory Status Wheelchair Review of Systems Musculoskeletal: Reports: Extremity pain (left shoulder), Extremity swelling ( left facial area) Skin: Reports Bruising (left clavicle ) Complete sys rev & neg: except as marked. Physical Exam Physical Exam Notes: abrasion over the left childress old bruising below right knee Initial Vital Signs Vital Signs (First) Date Time Temp Pulse Resp B/P Pulse Ox O2 Delivery O2 Flow Rate FiO2 03/06/17 16:20 37.2 65 14 136/72 100 Room Air Initial VS: Reviewed General/Constitutional: Awake, Alert, No acute distress Neck: Atraumatic, Supple, Non-tender Respiratory / Chest: Atraumatic, No respiratory distress Upper Extremities: ecchymosis over left clavicle actual shoulder non tender Skin: Atraumatic, Color NL, No rash, Warm, Dry Neurologic: Oriented X3, Speech NL, No motor deficits, No sensory deficits Head / Eyes: Atraumatic, Normocephalic, PERRL, EOMI ENT: Atraumatic, Airway patent, Mucous membranes moist, No trismus Back: Non-tender, No midline vertebral tend no bruising on back Psychiatric: Affect NL, Mood NL Interpretation & Diagnostics X-Ray Interpretation Xray Interpretation: IMPRESSION: Left clavicle fracture. Dictated by: Amirah Cid MD, PhD on 03/06/2017 at 17:09 Approved by: Amirah Cid MD, PhD on 03/06/2017 at 17:10 X-Ray Ordered: Clavicle left Interpretation / Wet Read by: Interpret - Radiologist Re-Eval/Medical Decision Source of Hx: Old records Re-Evaluation/Progress #1: Time of Eval: 19:12 Re-Evaluation/Progress Note: Rechecked patient. Did a full body exam for further bruising. Discussed results and diagnosis of clavicle fracture Re-Evaluation/Progress #2: Time of Eval: 19:41 Re-Evaluation/Progress Note: Discussed plan for treatment and discharge. The patient and patient's family understand and agree to the plan for discharge. All questions were addressed. Counseled Regarding: Diagnosis, Lab results, Need for follow-up, When/why to return to ED Discharge & Departure Impression: Primary Impression: Clavicle fracture Encounter type: initial encounter Clavicle location: lateral end Fracture type: closed Fracture alignment: displaced Laterality: left Qualified Code : S42.032A - Displaced fracture of lateral end of left clavicle, initial encounter for closed fracture Disposition: Home Discharge Condition All VS Reviewed: Yes Condition: Stable Patient Instructions: Clavicle Fracture (ED) Additional Instructions: Emergency Department evaluation included interview, examination and x-ray of the left clavicle. There is a left clavicle fracture. Given the unclear circumstances leading up to the fracture an Adult Protective Services report was made. Left arm should be in a sling if tolerated. If possible use plain acetaminophen as needed for pain. If this is not effective, Hydrocodone/APAP one to 2 every 4 hours as needed for pain, watch for constipation secondary to pain medications. Follow-up with orthopedics next week, call for an appointment. [place]ita[place] Attestation Portions of this note were transcribed by Caitlin Reed. I, Dr. Keenan personally performed the history, physical exam and medical decision-making; I reviewed and confirmed the accuracy of the information in the transcribed note. Signed by: José Luis Rosado, 4. and 1913. Teo Keenan MD Mar 06, 2017 16:22 Jo-Ann Reed Mar 06, 2017 16:29
[2017-03-06] MEDS ORDERED: HYDROcodone-APAP 5-325 mg Tablet PO ONE (16:30)
--- NOTE | 2017-03-06 17:11 | DRSVH ---
PROCEDURE: X-RAY LEFT CLAVICLE, COMPLETE ([id number]) INDICATIONS: L clavicular injury TECHNIQUE: 2 views of the clavicle were acquired. COMPARISON: None. FINDINGS: Bones: Fracture of the left clavicular midshaft noted. Distal fracture fragment is displaced superior ly. No definite acromioclavicular joint separation identified. Soft tissues: No suspicious soft tissue calcifications. IMPRESSION: Left clavicle fracture. Dictated by: Amirah Cid MD, PhD on 03/06/2017 at 17:09 Approved by: Amirah Cid MD, PhD on 03/06/2017 at 17:10
[2017-03-06] MEDS ORDERED: 0.9% Sodium Chloride 500 ML IV ONE (17:20)
[2017-03-06] MEDS ORDERED: _HYDROcodone/APAP 5-325 mg Tablet PO PRN (19:10)
[2017-03-06] MEDS ORDERED: HYDR-4003 PO (19:25)
--- NOTE | 2017-03-06 19:27 | NUR ---
Social Work: [facility]PS Facility Report ED notified BANKRUPTCY LEGAL ASSISTANT that pt has a clavicle fracture and that the origin of this is undetermined. Facility does not report that pt fell and in unsure of the cause of this injury. BANKRUPTCY LEGAL ASSISTANT called the [facility]PS licenses facilities line: [phone] and completed a report. Confirmation #[id number]. BARTOLO Sinha
[2017-03-06 20:12] VITALS: BP 136/72; PULSE 65; RESP 14; O2SAT 100
== END 2017-03-06 20:10 | disposition home or self-care (01) ==
LOC: SED 16:02 → EDUNIT# 16:02 → EDBD 16:02 → SED 20:10
DX: S42.022A Displaced fracture of shaft of left clavicle, initial encounter for closed fracture (principal); W19.XXXA Unspecified fall, initial encounter; Y93.89 Activity, other specified; Y92.129 Unspecified place in nursing home as the place of occurrence of the external cause; Y99.8 Other external cause status; R22.0 Localized swelling, mass and lump, head; Z88.8 Allergy status to other drugs, medicaments and biological substances